=== PATIENT | male | born 1950 ===

== ENCOUNTER 2016-10-25 17:07 | Emergency (ER) | payer OTHER ==
[2016-10-25 17:07] VITALS: BMI 26.6
[2016-10-25 17:59] VITALS: RESP 20; TEMP 98.1
[2016-10-25 18:13] VITALS: BP 177/115; PULSE 78; O2SAT 96
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
== END 2016-10-25 19:05 | disposition home or self-care (01) ==
LOC: C.ER 17:07
DX: S16.1XXA Strain of muscle, fascia and tendon at neck level, initial encounter (principal); V43.52XA Car driver injured in collision with other type car in traffic accident, initial encounter; Y92.410 Unspecified street and highway as the place of occurrence of the external cause

== ENCOUNTER 2017-03-24 20:45 | Emergency (ER) | payer OTHER ==
[2017-03-24 20:45] VITALS: BMI 26.6
[2017-03-24 20:58] VITALS: BP 160/90; PULSE 90; RESP 16; TEMP 98.3; O2SAT 99
--- NOTE | 2017-03-24 21:05 | C.PDOC ---
History Of Present Illness 66 year old male presents to ED with complaints of itchy rash for almost 3 months. Patient reports rash started on chest and has been spreading to back and arms. He states he was seen by PCP and given mometasone cream which he finished without any improvement. He continues to feel really itchy. Denies any SOB, difficulty swallowing or other associated complaints. Time Seen by Provider: 03/24/17 21:01 Chief Complaint (Nursing): Abnormal Skin Integrity History Per: Patient History/Exam Limitations: no limitations Onset/Duration Of Symptoms: Persistent (3 months ) Current Symptoms Are (Timing): Still Present Quality Of Symptoms: Itching Recent travel outside of the [place]: No Past Medical History Reviewed: Historical Data, Nursing Documentation, Vital Signs Vital Signs: Last Vital Signs Temp 98.3 F 03/24/17 20:55 Pulse 90 03/24/17 20:55 Resp 16 03/24/17 20:55 BP 160/90 H 03/24/17 20:55 Pulse Ox 99 03/24/17 21:55 - Medical History PMH: Back Problems, HTN, Hypercholesterolemia Surgical History: Appendectomy, Back Surgery Family History: States: Unknown Family Hx - Social History Hx Tobacco Use: No Hx Alcohol Use: No Hx Substance Use: No - Immunization History Hx Tetanus Toxoid Vaccination: No (unsure) Hx Influenza Vaccination: Yes Hx Pneumococcal Vaccination: No Review Of Systems Constitutional: Negative for: Fever, Chills Cardiovascular: Negative for: Chest Pain Respiratory: Negative for: Shortness of Breath Gastrointestinal: Negative for: Nausea, Vomiting Skin: Positive for: Rash Neurological: Negative for: Headache Physical Exam - Physical Exam Appears: Non-toxic, No Acute Distress Skin: Warm, Dry, Rash (multiple scattered erythematous annular lesions and maculopapular rash to trunk, back and upper extremities. no vesicles) Head: Atraumatic, Normacephalic Eye(s): bilateral: Normal Inspection Nose: Normal Oral Mucosa: Moist, No Dry Tongue: Normal Appearing, No Swelling Lips: Normal Appearing, No Swelling Throat: Normal, No Erythema, No Exudate Neck: Supple Chest: Symmetrical, No Deformity Cardiovascular: Rhythm Regular, No Murmur Respiratory: Normal Breath Sounds, No Rales, No Rhonchi, No Wheezing Gastrointestinal/Abdominal: Soft Extremity: Bilateral: Atraumatic, Normal Color And Temperature, Normal ROM Neurological/Psych: Oriented x3, Normal Speech Gait: Steady ED Course And Treatment O2 Sat by Pulse Oximetry: 99 (room air ) Progress Note: Patient was given Benadryl and Pepcid. Reassessment Condition: Improved Medical Decision Making Medical Decision Making: Patient with itchy rash for 3 months. Rash appears consistent with Tinea. Benadryl and Pepcid given for pruritus with mild relief. Advise patient to wash linens and will prescribe cream to apply to area and that it can take weeks to resolve. Recommend follow up with shrimping boat captain if symptoms persist Disposition Counseled Patient/Family Regarding: Diagnosis, Need For Followup, Rx Given - Disposition Referrals: Fuad Rios MD [Staff Provider] - Disposition: HOME/ ROUTINE Disposition Time: 21:27 Condition: STABLE Additional Instructions: Your prescriptions were sent to [email or web address] pharmacy Take Benadryl for itching every 6 hours as needed Apply cream to area twice daily for 2-3 weeks follow up with shrimping boat captain if symptoms persist Prescriptions: DiphenhydrAMINE [Benadryl] 25 mg PO Q6 PRN #60 cap PRN Reason: Itching / Pruritus Ketoconazole 2% Cr [Nizoral] 1 cre TP BID #1 tube Instructions: Tinea Corporis (ED) Forms: [employer] (Yemeni) Print Language: SOUTH SUDANESE - POA Present On Arrival: None - Clinical Impression Clinical Impression: Tinea corporis - PA / SCAFFOLDER / Resident Statement MD/DO has reviewed & agrees with the documentation as recorded. - Scribe Statement The provider has reviewed the documentation as recorded by the Scribe Eli Martínez All medical record entries made by the Scribe were at my direction and personally dictated by me. I have reviewed the chart and agree that the record accurately reflects my personal performance of the history, physical exam, medical decision making, and the department course for this patient. I have also personally directed, reviewed, and agree with the discharge instructions and disposition.
== END 2017-03-24 21:49 | disposition home or self-care (01) ==
LOC: C.ER 20:45
DX: B35.4 Tinea corporis (principal)

== ENCOUNTER 2017-06-08 14:00 | Emergency (ER) | payer MEDICARE, OTHER ==
[2017-06-08 14:00] VITALS: BMI 26.6
[2017-06-08 14:22] VITALS: BP 155/93; RESP 18; TEMP 97.4
[2017-06-08] MEDS ORDERED: Lidocaine 2% Jelly (Uro-Jet) TOP STA (14:27)
--- NOTE | 2017-06-08 14:28 | C.PDOC ---
History Of Present Illness 66 yr old male with PMHx of hemorrhoids (s/p prior procedure done by Dr. Kent) presents to the ER with complaints of rectal discomfort and swelling for the past 3 days. Patient reports of occasional blood with BM but none today. Otherwise, he denies fever, chills, chest pain, SOB, nausea, vomiting, abdominal pain, diarrhea, constipation, dysuria. Time Seen by Provider: 06/08/17 14:08 Chief Complaint (Nursing): GI Problem History Per: Patient History/Exam Limitations: no limitations Onset/Duration Of Symptoms: Days (3) Current Symptoms Are (Timing): Still Present Severity: Mild Associated Symptoms: Rectal Bleeding (with BM) Past Medical History Reviewed: Historical Data, Nursing Documentation, Vital Signs Vital Signs: Last Vital Signs Temp 97.4 F L 06/08/17 14:15 Pulse 79 06/08/17 14:54 Resp 18 06/08/17 14:54 BP 155/93 H 06/08/17 14:15 Pulse Ox 98 06/08/17 16:19 - Medical History PMH: Back Problems, HTN, Hypercholesterolemia Surgical History: Appendectomy, Back Surgery Family History: States: No Known Family Hx - Social History Hx Tobacco Use: No Hx Alcohol Use: No Hx Substance Use: No - Immunization History Hx Tetanus Toxoid Vaccination: No (unsure) Hx Influenza Vaccination: Yes Hx Pneumococcal Vaccination: No Review Of Systems Except As Marked, All Systems Reviewed And Found Negative. Constitutional: Negative for: Fever, Chills Cardiovascular: Negative for: Chest Pain, Palpitations Respiratory: Negative for: Cough, Shortness of Breath Gastrointestinal: Positive for: Other ((+) Rectal discomfort and swelling). Negative for: Nausea, Vomiting, Abdominal Pain, Diarrhea Genitourinary: Negative for: Dysuria Musculoskeletal: Negative for: Back Pain Neurological: Negative for: Weakness, Numbness Physical Exam - Physical Exam Appears: Well, Non-toxic, No Acute Distress Skin: Warm, Dry Oral Mucosa: Moist Cardiovascular: Rhythm Regular Respiratory: Normal Breath Sounds, No Rales, No Rhonchi, No Wheezing Gastrointestinal/Abdominal: Normal Exam, Bowel Sounds, Soft, No Tenderness, No Guarding, No Rebound Rectal: Hemorrhoids (At 9 and 3 o'clock positions - B/L external hemorrhoids that are nonthrombosed and not actively bleeding) Extremity: Normal ROM, No Swelling Neurological/Psych: Oriented x3 ED Course And Treatment O2 Sat by Pulse Oximetry: 98 (RA) Pulse Ox Interpretation: Normal Progress Note: PLAN: Patient given PO Colace and topical lidocaine in ED. Rxs given for colace, anusol, and patient instructed on doing sitz baths and to follow up with Dr. Kent within 1 week. Patient understands he should return to ED if symptoms worsen. Reevaluation Time: 14:40 Reassessment Condition: Improved Disposition Counseled Patient/Family Regarding: Studies Performed, Diagnosis, Need For Followup, Rx Given - Disposition Referrals: Ming Kent MD [Staff Provider] - Disposition: HOME/ ROUTINE Disposition Time: 14:40 Condition: STABLE Additional Instructions: SEGUIMIENTO CON LIU GASTROENTERLOGO DENTRO DE 1 SEMANA USE MEDICAMENTOS SEGN LO INDICADO REGRESE AL LAUREN DE EMERGENCIA SI LOS SNTOMAS EMPEORAN Prescriptions: Docusate [Colace] 100 mg PO DAILY #30 cap Hydrocortisone 2.5% (Rectal) [Anusol-HC] 1 applic [place] BID #1 tube Instructions: Hemorrhoids (ED), Sitz Bath (GEN) Forms: [employer] (Tajik) Print Language: MACEDONIAN - POA Present On Arrival: None - Clinical Impression Clinical Impression: External hemorrhoids - Scribe Statement The provider has reviewed the documentation as recorded by the Scribe Chanel Myles Provider Attestation: All medical record entries made by the Scribe were at my direction and personally dictated by me. I have reviewed the chart and agree that the record accurately reflects my personal performance of the history, physical exam, medical decision making, and the department course for this patient. I have also personally directed, reviewed, and agree with the discharge instructions and disposition.
[2017-06-08] MEDS ORDERED: Lidocaine 2% Jelly (Uro-Jet) ONE (14:31)
[2017-06-08 14:54] VITALS: PULSE 79
[2017-06-08 16:15] VITALS: O2SAT 98
== END 2017-06-08 14:54 | disposition home or self-care (01) ==
LOC: C.ER 14:00
DX: K64.4 Residual hemorrhoidal skin tags (principal)

== ENCOUNTER 2018-02-17 20:36 | Emergency (ER) | payer MEDICARE ==
[2018-02-17 20:36] VITALS: BMI 26.6
[2018-02-17 20:45] VITALS: BP 175/90; PULSE 76; RESP 18; TEMP 97.5; O2SAT 96
[2018-02-17] MEDS ORDERED: MethylPREDNISolone 40 mg Vial IM STA (21:08)
[2018-02-17] MEDS ORDERED: MethylPREDNISolone 40 mg Vial ONE (21:16)
--- NOTE | 2018-02-17 21:38 | C.PDOC ---
Time Seen by Provider: 02/17/18 20:47 Chief Complaint (Nursing): Allergic Reaction Past Medical History Vital Signs: Last Vital Signs Temp 97.5 F L 02/17/18 20:43 Pulse 76 02/17/18 20:43 Resp 18 02/17/18 20:43 BP 175/90 H 02/17/18 20:43 Pulse Ox 96 02/17/18 20:43 - Medical History PMH: Back Problems, HTN, Hypercholesterolemia Denies: Chronic Kidney Disease Surgical History: Appendectomy, Back Surgery Family History: States: Unknown Family Hx - Social History Hx Tobacco Use: No Hx Alcohol Use: Yes Hx Substance Use: No - Immunization History Hx Tetanus Toxoid Vaccination: No (unsure) Hx Influenza Vaccination: Yes Hx Pneumococcal Vaccination: No ED Course And Treatment O2 Sat by Pulse Oximetry: 96 Disposition - Disposition Referrals: Rachna Madrigal MD [Staff Provider] - Disposition: HOME/ ROUTINE Disposition Time: 21:35 Condition: GOOD Additional Instructions: Follow up with the medical doctor within 1-2 days, Return if worsened. Prescriptions: Ketoconazole [Nizoral] 120 ml TP BID #1 shampoo Ketoconazole 2% Cr [Nizoral] 60 gm EXT BID #3 tube Instructions: Hives Print Language: HEBREW - Clinical Impression Clinical Impression: Allergic contact dermatitis, Allergic urticaria
--- NOTE | 2018-02-17 21:41 | C.PDOC ---
History Of Present Illness 67 year old male presents to the emergency department with complaints of a constant, itchy rash all over the body for the past three months. He reports he was seen by his PMD and prescribed a steroid cream with no relief. He also reports seeing a popcorn machine operator, who also prescribed a cream with no relief. Patient denies fever, chills, nausea, vomiting, shortness of breath, swelling, and recent travel. Time Seen by Provider: 02/17/18 20:47 Chief Complaint (Nursing): Allergic Reaction History/Exam Limitations: no limitations Onset/Duration Of Symptoms: Other (three months) Current Symptoms Are (Timing): Still Present Quality Of Symptoms: Itching Recent travel outside of the [place]: No Past Medical History Reviewed: Historical Data, Nursing Documentation, Vital Signs Vital Signs: Last Vital Signs Temp 97.5 F L 02/17/18 20:43 Pulse 76 02/17/18 20:43 Resp 18 02/17/18 20:43 BP 175/90 H 02/17/18 20:43 Pulse Ox 96 02/17/18 21:52 - Medical History PMH: Back Problems, HTN, Hypercholesterolemia Denies: Chronic Kidney Disease Surgical History: Appendectomy, Back Surgery Family History: States: Unknown Family Hx - Social History Hx Tobacco Use: No Hx Alcohol Use: Yes Hx Substance Use: No - Immunization History Hx Tetanus Toxoid Vaccination: No (unsure) Hx Influenza Vaccination: Yes Hx Pneumococcal Vaccination: No Review Of Systems Except As Marked, All Systems Reviewed And Found Negative. Constitutional: Negative for: Fever, Chills Respiratory: Negative for: Shortness of Breath Gastrointestinal: Negative for: Nausea, Vomiting Skin: Positive for: Rash Physical Exam - Physical Exam Appears: Non-toxic, No Acute Distress Skin: Warm, Dry, Rash (scattered pink papular rash on the bilateral arms, chest , back, and on the left leg) Head: Atraumatic, Normacephalic Eye(s): bilateral: Normal Inspection Oral Mucosa: Moist Throat: Normal, No Erythema, No Exudate Neck: Normal, Supple Chest: Symmetrical, No Tenderness Cardiovascular: Rhythm Regular, No Murmur Respiratory: Normal Breath Sounds, No Rales, No Rhonchi, No Wheezing Gastrointestinal/Abdominal: Normal Exam, Soft, No Tenderness, No Guarding, No Rebound Extremity: Normal ROM, No Tenderness Neurological/Psych: Oriented x3, Normal Speech, Normal Cognition ED Course And Treatment O2 Sat by Pulse Oximetry: 96 (RA) Pulse Ox Interpretation: Normal Progress Note: Plan: Benadryl 25mg PO. Solu-Medrol 80mg PO Disposition - Disposition Referrals: Rachna Madrigal MD [Staff Provider] - Disposition: HOME/ ROUTINE Disposition Time: 21:00 Condition: GOOD Additional Instructions: Follow up with the medical doctor within 1-2 days, Return if worsened. Prescriptions: Ketoconazole [Nizoral] 120 ml TP BID #1 shampoo Ketoconazole 2% Cr [Nizoral] 60 gm EXT BID #3 tube Instructions: Hives Forms: [employer] (Czech) Print Language: IRISH - Clinical Impression Clinical Impression: Allergic contact dermatitis, Allergic urticaria - PA / CERAMIC PAINTER / Resident Statement MD/DO has reviewed & agrees with the documentation as recorded. - Scribe Statement The provider has reviewed the documentation as recorded by the Scribe (Jaylen Dallas) All medical record entries made by the Scribe were at my direction and personally dictated by me. I have reviewed the chart and agree that the record accurately reflects my personal performance of the history, physical exam, medical decision making, and the department course for this patient. I have also personally directed, reviewed, and agree with the discharge instructions and disposition.
== END 2018-02-17 21:43 | disposition home or self-care (01) ==
LOC: C.ER 20:36
DX: L23.9 Allergic contact dermatitis, unspecified cause (principal)
CPT/HCPCS: 96372; 99283; J2920

== ENCOUNTER 2018-03-17 20:45 | Emergency (ER) | payer MEDICARE, OTHER ==
[2018-03-17 20:45] VITALS: BMI 26.6
[2018-03-17 21:35] VITALS: BP 179/99; PULSE 91; RESP 18; TEMP 98.4; O2SAT 98
--- NOTE | 2018-03-17 22:01 | C.PDOC ---
History Of Present Illness 67 year old male presents to the ED for evaluation of puritic rash for the past 4 months. Patient has been seen by his PMD and Diamond Driller Helper who have prescribed medications. Patient states medication provided improvement but symptoms return shortly after. Patient has been using terbinafine and hydroxyzine. Patient denies fever, chill, nausea, vomit, recent travel, sick contacts. Time Seen by Provider: 03/17/18 21:40 Chief Complaint (Nursing): Abnormal Skin Integrity History Per: Patient History/Exam Limitations: no limitations Onset/Duration Of Symptoms: Persistent Current Symptoms Are (Timing): Still Present Quality Of Symptoms: Itching Recent travel outside of the [place]: No Additional History Per: Patient Past Medical History Reviewed: Historical Data, Nursing Documentation, Vital Signs Vital Signs: Last Vital Signs Temp 98.4 F 03/17/18 21:32 Pulse 91 H 03/17/18 21:32 Resp 18 03/17/18 21:32 BP 179/99 H 03/17/18 21:32 Pulse Ox 98 03/17/18 23:58 - Medical History PMH: Back Problems, HTN, Hypercholesterolemia Denies: Chronic Kidney Disease Surgical History: Appendectomy, Back Surgery Family History: States: Unknown Family Hx - Social History Hx Tobacco Use: No Hx Alcohol Use: Yes Hx Substance Use: No - Immunization History Hx Tetanus Toxoid Vaccination: No Hx Influenza Vaccination: Yes Hx Pneumococcal Vaccination: No Review Of Systems Constitutional: Negative for: Fever, Chills ENT: Negative for: Ear Discharge, Nose Discharge, Nose Congestion Respiratory: Negative for: Cough, Shortness of Breath Gastrointestinal: Negative for: Nausea, Vomiting Skin: Positive for: Rash Physical Exam - Physical Exam Appears: Non-toxic, No Acute Distress Skin: Warm, Dry, Rash (diffuse erythematous circular well demarcated patches at different stages) Head: Atraumatic, Normacephalic Eye(s): bilateral: Normal Inspection Ear(s): Bilateral: Normal Oral Mucosa: No Drooling Tongue: No Swelling Lips: No Swelling Throat: Normal, No Erythema, No Exudate Chest: Symmetrical Cardiovascular: Rhythm Regular Respiratory: Normal Breath Sounds, No Rhonchi Extremity: Normal ROM, No Tenderness, No Swelling Neurological/Psych: Oriented x3, Normal Speech, Normal Cognition Gait: Steady ED Course And Treatment O2 Sat by Pulse Oximetry: 98 (ON RA) Pulse Ox Interpretation: Normal Progress Note: Patient was advised to continue with medication and lotrisone cream was prescribed, recommend dermatology f/u. Patient in no respiratory distress speaking in complete sentences. Disposition Counseled Patient/Family Regarding: Diagnosis, Need For Followup - Disposition Referrals: Rachna Madrigal MD [Staff Provider] - Disposition: HOME/ ROUTINE Disposition Time: 21:57 Condition: STABLE Additional Instructions: Continue current meds May take benadryl at bedtime if still itchy Follw up with Dermatology Return to ER if worse Prescriptions: Clotrimazole/Betamethasone [Lotrisone] 1 applic EXT BID #60 g Instructions: Skin Rash (DC) Forms: [employer] (Kyrgyz) - Clinical Impression Clinical Impression: Skin rash, Fungal rash of torso - PA / IT APPLICATIONS DEVELOPER / Resident Statement MD/DO has reviewed & agrees with the documentation as recorded. - Scribe Statement The provider has reviewed the documentation as recorded by the Scribe Mitch Kim All medical record entries made by the Scribe were at my direction and personally dictated by me. I have reviewed the chart and agree that the record accurately reflects my personal performance of the history, physical exam, medical decision making, and the department course for this patient. I have also personally directed, reviewed, and agree with the discharge instructions and disposition.
== END 2018-03-17 22:05 | disposition home or self-care (01) ==
LOC: C.ER 20:45
DX: R21 Rash and other nonspecific skin eruption (principal)

== ENCOUNTER 2018-11-23 12:20 | Emergency (ER) | payer MEDICARE, OTHER ==
[2018-11-23 12:30] VITALS: O2SAT 98; BMI 28.8
--- NOTE | 2018-11-23 13:19 | C.PDOC ---
History Of Present Illness 68 year old male presents to ED with complaint of intermittent diffuse abdominal pain for the past month. Patient was prescribed dulcolax, however he broke out in a rash to his bilateral upper extremities when he took it. He states that since he has stopped taking dulcolax. Patient states that he has been having frequent bowel movements with soft stools. Patient was sent by Dr. Purvis. Patient has a history of hemorrhoids and hernia. His PMD is Dr. Madrigal. He denies nausea, vomiting, fever, chills, hematuria, or dysuria. Time Seen by Provider: 11/23/18 12:43 Chief Complaint (Nursing): Abdominal Pain History Per: Patient History/Exam Limitations: no limitations Onset/Duration Of Symptoms: Other (1 month) Current Symptoms Are (Timing): Still Present Location Of Pain/Discomfort: Diffuse Radiation Of Pain To:: None Quality Of Discomfort: "Pain" Associated Symptoms: denies: Fever, Chills, Nausea, Vomiting, Diarrhea, Urinary Symptoms Alleviating Factors: None Last Bowel Movement: Today Past Medical History Reviewed: Historical Data, Nursing Documentation, Vital Signs Vital Signs: Last Vital Signs Temp 98.8 F 11/23/18 12:27 Pulse 90 11/23/18 12:27 Resp 18 11/23/18 12:27 BP 140/84 11/23/18 12:27 Pulse Ox 98 11/23/18 12:27 Primary Care Provider: Rachna Madrigal - Medical History PMH: Back Problems, HTN, Hypercholesterolemia Denies: Chronic Kidney Disease Surgical History: Appendectomy, Back Surgery Family History: States: Unknown Family Hx - Social History Hx Tobacco Use: No Hx Alcohol Use: No Hx Substance Use: No - Immunization History Hx Tetanus Toxoid Vaccination: No Hx Influenza Vaccination: Yes Hx Pneumococcal Vaccination: No Review Of Systems Except As Marked, All Systems Reviewed And Found Negative. Gastrointestinal: Positive for: Abdominal Pain (diffuse) Physical Exam - Physical Exam Appears: Well, Non-toxic, No Acute Distress Skin: Normal Color, Warm, Dry Head: Atraumatic, Normacephalic Eye(s): bilateral: Normal Inspection (Conjunctiva clear), PERRL, EOMI Oral Mucosa: Moist Neck: Normal ROM, Supple Chest: Symmetrical, No Deformity Cardiovascular: Rhythm Regular, No Murmur Respiratory: No Accessory Muscle Use, No Rales, No Rhonchi, No Wheezing, Other (lungs CTA bilaterally, good air movement) Gastrointestinal/Abdominal: Bowel Sounds (normoactive), Soft, Tenderness (diffuse lower abdominal tenderness), No Distention, No Guarding, No Rebound Back: No CVA Tenderness Extremity: Capillary Refill (<2 seconds) Extremity: Bilateral: Atraumatic, Normal Color And Temperature, Normal ROM Pulses: Left Dorsalis Pedis: Normal, Right Dorsalis Pedis: Normal Neurological/Psych: Oriented x3, Normal Speech, Normal Cognition, Normal Cranial Nerves, Normal Motor, Normal Sensation Gait: Steady ED Course And Treatment - Laboratory Results Result Diagrams: 11/23/18 14:08 11/23/18 14:08 O2 Sat by Pulse Oximetry: 98 (in RA) Pulse Ox Interpretation: Normal Medical Decision Making Medical Decision Making: Impression: 68 year old male presents to ED with complaint of intermittant diffuse abdominal pain for the past month. Initial Plan: Abdomen/Pelvis CT CMP Lipase CBC UA IV fluids 16:[address] Purvis, wants to discharge patient home and to follow up with him next week. Disposition Discussed With : Jovany Purvis Comment: Wants to see patient in his office next week Doctor Will See Patient In The: Office Counseled Patient/Family Regarding: Studies Performed, Diagnosis, Need For Followup - Disposition Condition: STABLE Additional Instructions: CONSTANTINE BURNS, thank you for letting us take care of you today. Your provider was Renée Ball MD and you were treated for SENT BY PMD. The emergency medical care you received today was directed at your acute symptoms. It may take several days for your symptoms to resolve. Return to the Emergency Department if your symptoms worsen, do not improve, or if you have any other problems. Please contact Dr. Purvis for a follow up appointment in his office next week. Bring any paperwork you were given at discharge with you along with any medications you are taking to your follow up visit. Our treatment cannot replace ongoing medical care by a primary care provider outside of the emergency department. Thank you for allowing the [facility] team to be part of your care today. Instructions: Acute Abdomen (Belly Pain) Forms: [employer] ([facility]), General Discharge Instructions - POA Present On Arrival: None - Clinical Impression Clinical Impression: Abdominal pain - Scribe Statement The provider has reviewed the documentation as recorded by the Scribe (Manjula García) All medical record entries made by the Scribe were at my direction and personally dictated by me. I have reviewed the chart and agree that the record accurately reflects my personal performance of the history, physical exam, medical decision making, and the department course for this patient. I have also personally directed, reviewed, and agree with the discharge instructions and disposition.
[2018-11-23] MEDS ORDERED: Sodium Chloride 0.9% 1,000 ML IV ONE (13:46)
[2018-11-23 14:12] LABS: BASO % 0.6 % (0.0-2.0); EOS # 0.2 K/uL (0.0-0.7); HEMOGLOBIN 15.3 g/dL (12.0-18.0); LYMPH # 1.8 K/uL (1.0-4.3); LYMPH % 29.4 % (20.0-40.0); MEAN CELL VOLUME 93.6 fL (80.0-94.0); MEAN CORPUSCULAR HEMOGLOBIN 31.5 pg (27.0-31.0); MEAN CORPUSCULAR HGB CONC 33.6 g/dL (33.0-37.0); MEAN PLATELET VOLUME 9.6 fL (7.2-11.7); MONO # 0.9 K/uL (0.0-0.8); MONO % 14.6 % (0.0-10.0); NEUT # 3.2 K/uL (1.8-7.0); NEUT % 52.4 % (50.0-75.0); NRBC % 0.1 % (0.0-2.0); RBC 4.86 Mil/uL (4.40-5.90); RED CELL DISTRIBUTION WIDTH 13.4 % (11.5-14.5)
[2018-11-23 14:31] LABS: ALB/GLOB RATIO 1.1 (1.0-2.1)
[2018-11-23 14:32] LABS: ALBUMIN 3.8 g/dL (3.5-5.0); ALT/SGPT 297 U/L (21-72); AST/SGOT 145 U/L (17-59); BLOOD UREA NITROGEN 14 mg/dL (9-20); CALCIUM 9.3 mg/dl (8.6-10.4); GFR NON-AFRICAN AMERICAN > 60; LIPASE 216 U/L (23-300)
[2018-11-23 15:07] LABS: URINE BILIRUBIN NEGATIVE (NEGATIVE); URINE BLOOD NEGATIVE (NEGATIVE); URINE CLARITY Clear (Clear); URINE COLOR Yellow (YELLOW); URINE GLUCOSE (UA) NORMAL (Normal); URINE LEUKOCYTE ESTERASE NEG Leu/uL (Negative); URINE PROTEIN NEGATIVE (NEGATIVE); URINE UROBILINOGEN NORMAL mg/dL (0.2-1.0)
[2018-11-23] MEDS ORDERED: Iodixanol 320 MG/ML 100 ML BOTTLE IV ONE (15:35)
--- NOTE | 2018-11-23 16:31 | CT ---
Date of service: 11/23/2018 PROCEDURE: CT Abdomen and Pelvis with contrast HISTORY: abd pain COMPARISON: 06/14/2016 TECHNIQUE: Contrast dose: 100 mL Visipaque 320 Radiation dose: Total exam DLP = 935.62 mGy-cm. This CT exam was performed using one or more of the following dose reduction techniques: Automated exposure control, adjustment of the mA and/or kV according to patient size, and/or use of iterative reconstruction technique. FINDINGS: LOWER THORAX: Unremarkable. LIVER: Unremarkable. No gross lesion or ductal dilatation. GALLBLADDER AND BILE DUCTS: Unremarkable. PANCREAS: Unremarkable. No gross lesion or ductal dilatation. SPLEEN: Unremarkable. ADRENALS: Unremarkable. No mass. KIDNEYS AND URETERS: Unremarkable. No hydronephrosis. No solid mass. VASCULATURE: Unremarkable. No aortic aneurysm. There is atherosclerotic calcification of the abdominal aorta. BOWEL: Unremarkable. No obstruction. No gross mural thickening. APPENDIX: Not identified. No secondary findings. PERITONEUM: Unremarkable. No free fluid. No free air. LYMPH NODES: Unremarkable. No enlarged lymph nodes. BLADDER: Unremarkable. REPRODUCTIVE: Unremarkable prostate BONES: No acute fracture. OTHER FINDINGS: None. IMPRESSION: No acute abnormality.
[2018-11-23 17:10] VITALS: BP 138/96; PULSE 68; RESP 16; TEMP 98.1
== END 2018-11-23 17:09 | disposition home or self-care (01) ==
LOC: C.ER 12:20
DX: R10.84 Generalized abdominal pain (principal)
CPT/HCPCS: 74177; 80053; 81001; 83690; 85025; 99284; J7030; Q9967